=== PATIENT | male | born 1960 | race Caucasian/White ===

== ENCOUNTER 2018-02-03 13:05 | Inpatient (IN) | payer SELFPAY ==
[~2018-02-03] VITALS: Ht 152.4 cm; Wt 81.6 kg
[2018-02-03] MEDS ORDERED: KETOROLAC 60MG/2ML VIAL IM ONE (18:45)
[2018-02-03] MEDS ORDERED: MORPHINE SULFATE 4 MG/ML CPJ (NOT FOR IM USE) IV ONE (20:00)
[2018-02-03 20:16] LABS: CHLORIDE 106 mEq/L (98-107)
[2018-02-03 20:17] LABS: BASOPHILS % 0.4 % (0.0-2.0); EOSINOPHILS % 1.7 % (0.0-5.0); HEMATOCRIT. 38.8 % (42.0-52.0); HEMOGLOBIN. 13.3 g/dL (14.0-18.0); INR 1.2; LYMPHOCYTES % 22.8 % (20.0-50.0); MEAN CORPUSCULAR HEMOGLOBIN 29.7 pg (28.0-32.0); MEAN CORPUSCULAR VOLUME 86.6 fL (80.0-94.0); MONOCYTES % 10.8 % (2.0-8.0); NEUTROPHILS % 64.3 % (40.0-76.0); PLATELET 143 x1000/uL (130-400); PROTHROMBIN TIME 12.1 sec (9.4-11.6); RED BLOOD CELL COUNT 4.48 mill/uL (4.7-6.1); RED CELL DISTRIBUTION WIDTH 13.2 % (11.6-14.6)
[2018-02-03] MEDS ORDERED: IPRATROPIUM/ALBUTEROL 0.5-3(2.5)MG/3ML NEB INH PRN (21:30)
[2018-02-03] MEDS ORDERED: MORPHINE SULFATE 4 MG/ML CPJ (NOT FOR IM USE) IV PRN (21:30)
[2018-02-03] MEDS ORDERED: ONDANSETRON HCL 4MG/2ML VIAL IV PRN (21:30)
[2018-02-04 00:20] VITALS: BP 133/79
[2018-02-04 00:26] LABS: CHLORIDE 108 mEq/L (98-107)
[2018-02-04] MEDS: SODIUM CHLORIDE 0.9% 1,000 ML IV SCH ×2 (01:06→10:35)
[2018-02-04 01:45] VITALS: BP 133/79
[2018-02-04 03:34] LABS: *AMPHETAMINES SCREEN URINE NEGATIVE (NEGATIVE); *BARBITURATES SCREEN URINE NEGATIVE (NEGATIVE); *BENZODIAZEPINES SCREEN URINE NEGATIVE (NEGATIVE); *COCAINE SCREEN URINE NEGATIVE (NEGATIVE)
[2018-02-04 03:35] LABS: CANNABINOID URINE SCREEN NEGATIVE (NEGATIVE); METHADONE URINE SCREEN NEGATIVE (NEGATIVE); OPIATES URINE SCREEN PRESUMTIVE POSITIVE (NEGATIVE); PHENCYCLIDINE URINE SCREEN NEGATIVE (NEGATIVE)
[2018-02-04 04:00] VITALS: BP 101/54
[2018-02-04 06:56] LABS: BASOPHILS % 0.6 % (0.0-2.0); EOSINOPHILS % 6.7 % (0.0-5.0); HEMATOCRIT. 36.4 % (42.0-52.0); HEMOGLOBIN. 12.5 g/dL (14.0-18.0); LYMPHOCYTES % 22.7 % (20.0-50.0); MEAN CORPUSCULAR HEMOGLOBIN 29.6 pg (28.0-32.0); MEAN CORPUSCULAR VOLUME 86.4 fL (80.0-94.0); MEAN PLATELET VOLUME 9.2 fl (7.4-10.4); MONOCYTES % 11.7 % (2.0-8.0); NEUTROPHILS % 58.3 % (40.0-76.0); PLATELET 127 x1000/uL (130-400); RED BLOOD CELL COUNT 4.22 mill/uL (4.7-6.1); RED CELL DISTRIBUTION WIDTH 13.2 % (11.6-14.6)
[2018-02-04] MEDS: ENOXAPARIN 40MG/0.4ML SYR SUBCUT SCH (08:25)
[2018-02-04] MEDS ORDERED: NA PHOS,M-B/NA PHOS,DI-BA ENEMA 118ML PR PRN (09:00)
[2018-02-04] MEDS ORDERED: ACETAMINOPHEN 650MG SUPP PR PRN (09:00)
[2018-02-04] MEDS ORDERED: CLONIDINE 0.1MG TABLET PO PRN (09:00)
[2018-02-04] MEDS ORDERED: GUAIFENESIN 200MG/10ML SUGAR FREE UDC PO PRN (09:00)
[2018-02-04] MEDS ORDERED: LORAZEPAM 0.5MG TABLET PO PRN (09:00)
[2018-02-04] MEDS ORDERED: ONDANSETRON HCL 4MG/2ML VIAL IV PRN ×2 (09:00→18:00)
[2018-02-04] MEDS ORDERED: ACETAMINOPHEN 650MG/20.3ML UDC GT PRN (09:00)
[2018-02-04] MEDS ORDERED: DOCUSATE SODIUM 100MG CAPSULE PO PRN (09:00)
[2018-02-04] MEDS ORDERED: MAGNESIUM/ALUMINUM HYDROXIDE/SIMETHICONE 30ML UDC PO PRN (09:00)
[2018-02-04] MEDS ORDERED: DIPHENHYDRAMINE 50MG/ML VIAL IV PRN (09:00)
[2018-02-04] MEDS ORDERED: BACITRACIN ZINC 15GM TUBE TOP ONE (17:26)
[2018-02-04] MEDS ORDERED: VANCOMYCIN HCL 500 MG/VIAL ONE (17:27)
[2018-02-04] MEDS ORDERED: PROPOFOL 200MG/20ML VIAL IV ONE (18:13)
[2018-02-04] MEDS ORDERED: LIDOCAINE HCL/PF 1% 10 MG/ML 5ML VIAL ONE (18:13)
[2018-02-04] MEDS ORDERED: FENTANYL CITRATE/PF 50MCG/ML 2ML VIAL ONE ×2 (18:13→18:55)
[2018-02-04] MEDS ORDERED: MIDAZOLAM HCL 2 MG/2 ML VIAL ONE (18:13)
[2018-02-04] MEDS ORDERED: SUCCINYLCHOLINE CHLORIDE 200MG/10ML VIAL IV ONE (18:13)
[2018-02-04] MEDS ORDERED: CEFAZOLIN SODIUM 1000MG/VIAL ONE (18:22)
[2018-02-04] MEDS ORDERED: ROCURONIUM BROMIDE 10MG/ML VIAL 5ML IV ONE (18:27)
[2018-02-04 19:06] LABS: CLARITY URINE CLEAR (CLEAR); COLOR URINE YELLOW (YELLOW); KETONES URINE TRACE (NEGATIVE); LEUKOCYTE ESTERASE URINE TRACE (NEGATIVE); NITRITE URINE NEGATIVE (NEGATIVE); OCCULT BLOOD URINE NEGATIVE (NEGATIVE); PROTEIN URINE NEGATIVE (NEGATIVE); SPECIFIC GRAVITY URINE 1.017 (1.005-1.030)
[2018-02-04] MEDS ORDERED: NEOSTIGMINE METHYLSULFATE 1MG/ML 10 ML VIAL ONE (19:09)
[2018-02-04] MEDS ORDERED: GLYCOPYRROLATE 0.2 MG/ML 2ML VIAL ONE ×2 (19:09→19:16)
[2018-02-04] MEDS: FENTANYL CITRATE/PF 50MCG/ML 2ML VIAL IV PRN ×3 (19:42→20:13)
[2018-02-04] MEDS: HYDROMORPHONE HCL/PF 2MG/ML CPJ IV PRN ×3 (19:56→20:20)
[2018-02-04 20:00] VITALS: BP 131/76
[2018-02-04] MEDS: IPRATROPIUM/ALBUTEROL 0.5-3(2.5)MG/3ML NEB INH SCH (21:45)
[2018-02-04] MEDS: MORPHINE SULFATE 4 MG/ML CPJ (NOT FOR IM USE) IV PRN (23:49)
[2018-02-05] VITALS: BP 120/70
[2018-02-05] MEDS: SODIUM CHLORIDE 0.9% 1,000 ML IV SCH ×2 (00:09→08:17)
[2018-02-05] MEDS: IPRATROPIUM/ALBUTEROL 0.5-3(2.5)MG/3ML NEB INH SCH ×3 (02:14→22:26)
[2018-02-05] MEDS: CEFAZOLIN 1000MG PREMIX 50 ML IV SCH ×2 (03:41→10:41)
[2018-02-05 04:00] VITALS: BP 105/59
[2018-02-05] MEDS: MORPHINE SULFATE 4 MG/ML CPJ (NOT FOR IM USE) IV PRN ×2 (06:36→21:59)
[2018-02-05] MEDS: ACETAMINOPHEN 325MG TABLET PO PRN (06:47)
[2018-02-05 08:00] VITALS: BP 122/66
[2018-02-05 08:10] LABS: CHLORIDE 108 mEq/L (98-107)
[2018-02-05 08:17] LABS: HDL CHOLESTEROL 39 mg/dL (40-59)
[2018-02-05] MEDS: HYDROCODONE/ACETAMINOPHEN 10/325MG TABLET PO PRN (08:18)
[2018-02-05 08:19] LABS: LDL CHOLESTEROL 62 mg/dL (5-100)
[2018-02-05 08:23] LABS: BASOPHILS % 0.4 % (0.0-2.0); EOSINOPHILS % 1.3 % (0.0-5.0); HEMATOCRIT. 31.7 % (42.0-52.0); HEMOGLOBIN. 10.9 g/dL (14.0-18.0); LYMPHOCYTES % 18.8 % (20.0-50.0); MEAN CORPUSCULAR HEMOGLOBIN 29.8 pg (28.0-32.0); MEAN CORPUSCULAR VOLUME 86.9 fL (80.0-94.0); MEAN PLATELET VOLUME 10.1 fl (7.4-10.4); MONOCYTES % 10.5 % (2.0-8.0); PLATELET 114 x1000/uL (130-400); RED BLOOD CELL COUNT 3.65 mill/uL (4.7-6.1); RED CELL DISTRIBUTION WIDTH 13.3 % (11.6-14.6)
[2018-02-05] MEDS: ENOXAPARIN 40MG/0.4ML SYR SUBCUT SCH (08:36)
[2018-02-05] MEDS ORDERED: DOCU-138 PO (11:28)
[2018-02-05] MEDS ORDERED: ACET-2178 PO (11:28)
[2018-02-05] MEDS ORDERED: KETO10TA2 PO (11:29)
[2018-02-05 12:00] VITALS: BP 128/68
[2018-02-05 16:00] VITALS: BP 130/77
[2018-02-05] MEDS: KETOROLAC 10MG TABLET PO PRN (17:03)
[2018-02-05 20:00] VITALS: BP 133/69
[2018-02-06] VITALS: BP 120/64
[2018-02-06] MEDS: MORPHINE SULFATE 4 MG/ML CPJ (NOT FOR IM USE) IV PRN ×2 (02:20→21:03)
[2018-02-06] MEDS: IPRATROPIUM/ALBUTEROL 0.5-3(2.5)MG/3ML NEB INH SCH ×5 (02:43→21:58)
[2018-02-06 04:00] VITALS: BP 158/64
[2018-02-06 07:31] VITALS: BP 132/73
[2018-02-06] MEDS: ENOXAPARIN 40MG/0.4ML SYR SUBCUT SCH (08:44)
[2018-02-06] MEDS: ACETAMINOPHEN 325MG TABLET PO PRN (08:50)
[2018-02-06] MEDS: HYDROCODONE/ACETAMINOPHEN 10/325MG TABLET PO PRN (09:42)
[2018-02-06 12:00] VITALS: BP 112/70
[2018-02-06] MEDS: SODIUM CHLORIDE 0.9% 1,000 ML IV SCH (13:00)
[2018-02-06 15:54] VITALS: BP 127/58
[2018-02-06 20:00] VITALS: BP 138/83
[2018-02-07] VITALS: BP 123/71
[2018-02-07] MEDS: MORPHINE SULFATE 4 MG/ML CPJ (NOT FOR IM USE) IV PRN ×3 (00:18→11:12)
[2018-02-07] MEDS: IPRATROPIUM/ALBUTEROL 0.5-3(2.5)MG/3ML NEB INH SCH ×2 (03:12→22:28)
[2018-02-07 04:00] VITALS: BP 129/68
[2018-02-07 07:30] LABS: BASOPHILS % 0.6 % (0.0-2.0); EOSINOPHILS % 9.1 % (0.0-5.0); HEMATOCRIT. 29.2 % (42.0-52.0); HEMOGLOBIN. 10.1 g/dL (14.0-18.0); LYMPHOCYTES % 25.2 % (20.0-50.0); MEAN CORPUSCULAR HEMOGLOBIN 29.9 pg (28.0-32.0); MEAN CORPUSCULAR VOLUME 86.5 fL (80.0-94.0); MEAN PLATELET VOLUME 9.6 fl (7.4-10.4); MONOCYTES % 9.7 % (2.0-8.0); NEUTROPHILS % 55.4 % (40.0-76.0); PLATELET 139 x1000/uL (130-400); RED BLOOD CELL COUNT 3.38 mill/uL (4.7-6.1); RED CELL DISTRIBUTION WIDTH 13.3 % (11.6-14.6)
[2018-02-07 07:58] LABS: CHLORIDE 108 mEq/L (98-107)
[2018-02-07 08:00] VITALS: BP 126/69
[2018-02-07] MEDS: ENOXAPARIN 40MG/0.4ML SYR SUBCUT SCH (09:43)
[2018-02-07] MEDS: SODIUM CHLORIDE 0.9% 1,000 ML IV SCH (09:44)
[2018-02-07 12:00] VITALS: BP 124/72
[2018-02-07] MEDS: HYDROCODONE/ACETAMINOPHEN 10/325MG TABLET PO PRN (14:36)
[2018-02-07 16:00] VITALS: BP 113/62
[2018-02-07 20:56] VITALS: BP 122/68
[2018-02-08] VITALS: BP 111/66
[2018-02-08] MEDS: HYDROCODONE/ACETAMINOPHEN 10/325MG TABLET PO PRN ×3 (01:33→13:30)
[2018-02-08] MEDS: IPRATROPIUM/ALBUTEROL 0.5-3(2.5)MG/3ML NEB INH SCH ×4 (03:09→20:18)
[2018-02-08 04:00] VITALS: BP 109/78
[2018-02-08] MEDS: SODIUM CHLORIDE 0.9% 1,000 ML IV SCH ×4 (06:53→22:46)
[2018-02-08 07:01] LABS: CHLORIDE 113 mEq/L (98-107)
[2018-02-08 07:09] LABS: BASOPHILS % 0.5 % (0.0-2.0); EOSINOPHILS % 10.6 % (0.0-5.0); HEMATOCRIT. 26.6 % (42.0-52.0); HEMOGLOBIN. 9.2 g/dL (14.0-18.0); LYMPHOCYTES % 31.9 % (20.0-50.0); MEAN CORPUSCULAR VOLUME 86.6 fL (80.0-94.0); MEAN PLATELET VOLUME 8.9 fl (7.4-10.4); MONOCYTES % 9.1 % (2.0-8.0); NEUTROPHILS % 47.9 % (40.0-76.0); PLATELET 159 x1000/uL (130-400); RED BLOOD CELL COUNT 3.08 mill/uL (4.7-6.1); RED CELL DISTRIBUTION WIDTH 12.9 % (11.6-14.6)
[2018-02-08 08:00] VITALS: BP 123/65
[2018-02-08] MEDS: ENOXAPARIN 40MG/0.4ML SYR SUBCUT SCH (08:43)
[2018-02-08] MEDS ORDERED: POTASSIUM CHLORIDE 20MEQ TABLET SR PO NR (11:00)
[2018-02-08 12:00] VITALS: BP 96/53
[2018-02-08] MEDS: KETOROLAC 10MG TABLET PO PRN ×2 (15:05→20:47)
[2018-02-08 16:00] VITALS: BP 115/68
[2018-02-08 20:00] VITALS: BP 112/61
[2018-02-08 20:23] LABS: TOTAL IRON BINDING CAPACITY 233 ug/dL (250-450)
[2018-02-08 20:56] LABS: FOLIC ACID (FOLATE) SERUM 10.8 ng/mL (>5.38)
[2018-02-09] VITALS: BP 110/65
[2018-02-09] MEDS: IPRATROPIUM/ALBUTEROL 0.5-3(2.5)MG/3ML NEB INH SCH ×2 (02:24→20:34)
[2018-02-09 04:00] VITALS: BP 95/66
[2018-02-09] MEDS: KETOROLAC 10MG TABLET PO PRN ×3 (05:11→21:30)
[2018-02-09 08:32] LABS: BASOPHILS % 0.8 % (0.0-2.0); EOSINOPHILS % 11.6 % (0.0-5.0); HEMATOCRIT. 28.8 % (42.0-52.0); LYMPHOCYTES % 20.7 % (20.0-50.0); MEAN CORPUSCULAR HEMOGLOBIN 30.2 pg (28.0-32.0); MEAN CORPUSCULAR VOLUME 86.8 fL (80.0-94.0); MEAN PLATELET VOLUME 9.1 fl (7.4-10.4); MONOCYTES % 7.5 % (2.0-8.0); NEUTROPHILS % 59.4 % (40.0-76.0); PLATELET 186 x1000/uL (130-400); RED BLOOD CELL COUNT 3.32 mill/uL (4.7-6.1)
[2018-02-09 09:00] LABS: CHLORIDE 108 mEq/L (98-107)
[2018-02-09] MEDS: ENOXAPARIN 40MG/0.4ML SYR SUBCUT SCH (09:20)
[2018-02-09] MEDS: SODIUM CHLORIDE 0.9% 1,000 ML IV SCH (09:28)
[2018-02-09] MEDS: MORPHINE SULFATE 4 MG/ML CPJ (NOT FOR IM USE) IV PRN (15:59)
[2018-02-09 20:00] VITALS: BP 123/74
[2018-02-09] MEDS: ACETAMINOPHEN 325MG TABLET PO PRN (21:30)
[2018-02-10] MEDS: IPRATROPIUM/ALBUTEROL 0.5-3(2.5)MG/3ML NEB INH SCH ×3 (01:43→20:01)
[2018-02-10 02:13] VITALS: BP 116/69
[2018-02-10 04:00] VITALS: BP 105/72
[2018-02-10] MEDS: SODIUM CHLORIDE 0.9% 1,000 ML IV SCH ×2 (04:49→17:00)
[2018-02-10 07:21] LABS: CHLORIDE 106 mEq/L (98-107)
[2018-02-10 07:34] LABS: EOSINOPHILS % 10.6 % (0.0-5.0); HEMATOCRIT. 30.1 % (42.0-52.0); HEMOGLOBIN. 10.6 g/dL (14.0-18.0); LYMPHOCYTES % 25.1 % (20.0-50.0); MEAN CORPUSCULAR HEMOGLOBIN 30.1 pg (28.0-32.0); MEAN CORPUSCULAR VOLUME 85.7 fL (80.0-94.0); MEAN PLATELET VOLUME 8.6 fl (7.4-10.4); MONOCYTES % 9.6 % (2.0-8.0); NEUTROPHILS % 53.7 % (40.0-76.0); PLATELET 222 x1000/uL (130-400); RED BLOOD CELL COUNT 3.51 mill/uL (4.7-6.1); RED CELL DISTRIBUTION WIDTH 12.8 % (11.6-14.6)
[2018-02-10 08:00] VITALS: BP 104/60
[2018-02-10] MEDS: ENOXAPARIN 40MG/0.4ML SYR SUBCUT SCH (09:06)
[2018-02-10 12:00] VITALS: BP 112/67
[2018-02-10] MEDS: TRAMADOL 50MG TABLET PO PRN ×2 (13:21→21:50)
[2018-02-10 16:00] VITALS: BP 108/56
[2018-02-10 20:00] VITALS: BP 122/72
[2018-02-11] VITALS: BP 123/75
[2018-02-11] MEDS: IPRATROPIUM/ALBUTEROL 0.5-3(2.5)MG/3ML NEB INH SCH ×2 (01:57→20:50)
[2018-02-11] MEDS: SODIUM CHLORIDE 0.9% 1,000 ML IV SCH (02:54)
[2018-02-11 04:00] VITALS: BP 106/60
[2018-02-11 07:05] LABS: BASOPHILS % 0.7 % (0.0-2.0); EOSINOPHILS % 6.8 % (0.0-5.0); HEMATOCRIT. 29.7 % (42.0-52.0); HEMOGLOBIN. 10.1 g/dL (14.0-18.0); LYMPHOCYTES % 23.7 % (20.0-50.0); MEAN CORPUSCULAR HEMOGLOBIN 29.7 pg (28.0-32.0); MEAN PLATELET VOLUME 8.6 fl (7.4-10.4); MONOCYTES % 9.3 % (2.0-8.0); NEUTROPHILS % 59.5 % (40.0-76.0); PLATELET 235 x1000/uL (130-400); RED BLOOD CELL COUNT 3.42 mill/uL (4.7-6.1)
[2018-02-11 07:26] LABS: CHLORIDE 105 mEq/L (98-107)
[2018-02-11 08:00] VITALS: BP 112/68
[2018-02-11] MEDS: ENOXAPARIN 40MG/0.4ML SYR SUBCUT SCH (08:34)
[2018-02-11] MEDS: ACETAMINOPHEN 325MG TABLET PO PRN ×2 (09:37→19:40)
[2018-02-11 12:00] VITALS: BP 106/53
[2018-02-11 16:00] VITALS: BP 103/60
[2018-02-11 20:00] VITALS: BP 111/71
[2018-02-12] VITALS: BP 110/61
[2018-02-12] MEDS: SODIUM CHLORIDE 0.9% 1,000 ML IV SCH ×2 (01:45→08:27)
[2018-02-12] MEDS: IPRATROPIUM/ALBUTEROL 0.5-3(2.5)MG/3ML NEB INH SCH ×3 (02:33→16:10)
[2018-02-12 04:00] VITALS: BP 107/60
[2018-02-12 08:00] VITALS: BP 89/55
[2018-02-12] MEDS: ENOXAPARIN 40MG/0.4ML SYR SUBCUT SCH (08:26)
[2018-02-12] MEDS: ACETAMINOPHEN 325MG TABLET PO PRN (08:33)
[2018-02-12] MEDS: TRAMADOL 50MG TABLET PO PRN (10:48)
[2018-02-12 12:00] VITALS: BP 94/48
[2018-02-12 15:35] VITALS: BP_SYST 136; BP_SYST 94; BP_DIAS 48; BP_DIAS 78
[2018-02-12 16:00] VITALS: BP 105/62
== END 2018-02-12 17:55 | disposition home or self-care (01) | DRG 308 ==
LOC: ER 13:23 → EDBEDREQ 19:40 → 6EST 19:58 → EDBD 19:58 → EDBEDREQ 20:00 → EDBEDREQTM 20:00 → ENRESERV 20:12
PROVIDERS: ADMIT Internal Medicine; ATTEND Internal Medicine
PROC: 2W3DX1Z Immobilization of Left Lower Arm using Splint (ICD-10-PCS; 2018-02-04)
PROC: 0QS736Z Reposition Left Upper Femur with Intramedullary Internal Fixation Device, Percutaneous Approach (ICD-10-PCS; principal; 2018-02-04 21:00)
DX: S72.142A Displaced intertrochanteric fracture of left femur, initial encounter for closed fracture (principal); I10 Essential (primary) hypertension; D63.8 Anemia in other chronic diseases classified elsewhere; S52.502A Unspecified fracture of the lower end of left radius, initial encounter for closed fracture; S52.615A Nondisplaced fracture of left ulna styloid process, initial encounter for closed fracture; E03.9 Hypothyroidism, unspecified; F17.200 Nicotine dependence, unspecified, uncomplicated; W11.XXXA Fall on and from ladder, initial encounter; Y93.89 Activity, other specified; Y92.89 Other specified places as the place of occurrence of the external cause; Y99.8 Other external cause status
CPT/HCPCS: 36415; 71045; 73110; 73502; 73552; 73560; 73590; 80048; 80053; 80061; 80305; 81003; 82270; 82565; 82607; 82746; 83540; 83550; 83690; 85025; 85044; 85610; 93005; 93970; 94640; 96372; 96374; 96375; 97116; 97162; 97530; 97535; 97760; 99285; J0330; J0690; J1170; J1650; J1885; J2250; J2270; J2704; J2710; J3010; J3370; J3490; J7030; J7620